=== PATIENT | male | born 1955 | race Caucasian/White ===

== ENCOUNTER 2017-06-23 09:52 | Emergency (ER) | payer OTHER ==
[2017-06-23] MEDS ORDERED: ONDANSETRON 4 MG/2 ML VIAL IVP ONE (10:15)
[2017-06-23] MEDS ORDERED: NS 1,000 ML IV ONE (10:15)
--- NOTE | 2017-06-23 10:18 | EDPHY ---
HPI/HX/ROS/PE/MDM Narrative: CHIEF COMPLAINT: Dyspnea HPI: The patient is a 62 y/o male with hypercholesterolemia visiting from [place] for evaluation of dyspnea over the last week. Last Sunday while in [place] he went on a walk with his and felt unexpectedly short of breath with sensation of a racing heart and mild chest pain. He denies pleuritic pain and instead describes difficulty catching his breath. These symptoms recurred during exercise sessions throughout the week. He has also been sleeping more than normal and yesterday developed nausea, vomiting, and diarrhea. This constellation of symptoms recurred this morning so his urged him to come to the ED for evaluation. He also has a mild headache. He has an unclear cardiac history including something abnormal with his aortic root that was previously erroneously diagnosed as an aneurysm and strong family history of cardiac disease. In 2005 he had an abnormal stress test and a normal angio. He has had multiple subsequent cardiac evaluations, but has difficulty telling me what, if anything was determined from these. He denies history of blood clots or respiratory disease. REVIEW OF SYSTEMS: Aside from elements discussed in the HPI, a comprehensive 10-point review of systems was reviewed and is negative. PMH: Hypercholesterolemia, "something in the aortic root that's not an aneurysm " FAMILY HISTORY: Mother has cardiac issues and "5 children of heart attacks." SOCIAL HISTORY: Visiting from [place] for conference. . PHYSICAL EXAM: General:Patient is alert, in no acute distress. ENT:Eyes are normal to inspection. ENT inspection normal. Neck: Normal inspection. Full range of motion. Respiratory:No respiratory distress. Breath sounds normal bilaterally. Cardiovascular: Regular rate and rhythm. Strong peripheral pulses. Normal cap refill. Abdomen:The abdomen is nontender to palpation. There are no peritoneal signs. Back: Normal to inspection. No tenderness to palpation. Skin: Normal color. No rash. Warm and dry. Extremities: Normal appearance. Full range of motion. Neuro: Oriented x3. Normal motor function. Normal sensory function. ED Course: Plan for standard chest pain evaluation with IV, labs, EKG, chest x-ray. 1L IV NS and 4mg IV Zofran ordered. The 12 lead EKG was interpreted by myself. See hard copy and/or "tracemaster" electronic copy for interpretation. Chest x-ray: nothing acute. MDM: This patient presents with exertional chest pain and dyspnea which is concerning for possible cardiac ischemia. We performed an extensive workup in the ED which is thankfully negative. I had an extensive discussion with the patient and his and indicated that while there is no evidence that the patient has had a heart attack, that he could still be suffering from ischemia and is at risk of developing one. I recommended admission and cardiology consultation but patient refuses. He is sober and competent and appears to understand risks involved in this decision. We discussed strict return precautions. - Data Points Imaging Results: Imaging Impressions Chest X-Ray 06/23/17 10:15 Impression: No acute abnormality. Imaging: I viewed and interpreted images myself Laboratory Results: Laboratory Results 06/23/17 10:25 06/23/17 10:25 06/23/17 06/23/17 06/23/17 10:25 10:25 10:25 WBC 4.32 10^3/uL 10^3/uL (3.80-9.50) RBC 4.69 10^6/uL 10^6/uL (4.40-6.38) Hgb 14.3 g/dL g/dL (13.7-17.5) Hct 42.6 % % (40.0-51.0) MCV 90.8 fL fL (81.5-99.8) MCH 30.5 pg pg (27.9-34.1) MCHC 33.6 g/dL g/dL (32.4-36.7) RDW 13.6 % % (11.5-15.2) Plt Count 177 10^3/uL 10^3/uL (150-400) MPV 11.5 fL fL (8.7-11.7) Neut % (Auto) 60.9 % % (39.3-74.2) Lymph % (Auto) 17.4 % % (15.0-45.0) [place] % (Auto) 15.0 % H % (4.5-13.0) Eos % (Auto) 6.0 % % (0.6-7.6) Baso % (Auto) 0.5 % % (0.3-1.7) Nucleat RBC Rel Count 0.0 % % (0.0-0.2) Absolute Neuts (auto) 2.63 10^3/uL 10^3/uL (1.70-6.50) Absolute Lymphs (auto) 0.75 10^3/uL L 10^3/uL (1.00-3.00) Absolute Monos (auto) 0.65 10^3/uL 10^3/uL (0.30-0.80) Absolute Eos (auto) 0.26 10^3/uL 10^3/uL (0.03-0.40) Absolute Basos (auto) 0.02 10^3/uL 10^3/uL (0.02-0.10) Absolute Nucleated RBC 0.00 10^3/uL 10^3/uL (0-0.01) Immature Gran % 0.2 % % (0.0-1.1) Immature Gran # 0.01 10^3/uL 10^3/uL (0.00-0.10) D-Dimer 0.31 ug/mLFEU ug/mLFEU (0.00-0.50) Sodium 141 mEq/L mEq/L (135-145) Potassium 4.6 mEq/L mEq/L (3.5-5.2) Chloride 103 mEq/L mEq/L (97-110) Carbon Dioxide 25 mEq/l mEq/l (22-31) Anion Gap 13 mEq/L mEq/L (8-16) BUN 18 mg/dL mg/dL (7-23) Creatinine 1.0 mg/dL mg/dL (0.7-1.3) Estimated GFR > 60 Glucose 82 mg/dL mg/dL (70-100) Calcium 8.3 mg/dL L mg/dL (8.5-10.4) Troponin I < 0.012 ng/mL ng/mL (0.000-0.034) NT-Pro-B Natriuret Pep 38 pg/mL pg/mL (0-125) Lipase 58 IU/L IU/L (23-300) Medications Given: Discontinued Medications Acetaminophen (Tylenol) 650 mg PO EDNOW ONE Stop: 06/23/17 11:24 Last Admin: 06/23/17 11:25 Dose: 650 mg Sodium Chloride (Ns) 1,000 mls @ 0 mls/hr IV EDNOW ONE; Wide Open PRN Reason: Protocol Stop: 06/23/17 10:16 Last Admin: 06/23/17 10:44 Dose: 1,000 mls Ondansetron HCl (Zofran) 4 mg IVP EDNOW ONE Stop: 06/23/17 10:16 Last Admin: 06/23/17 10:46 Dose: Not Given General Time Seen by Provider: 06/23/17 10:08 Initial Vital Signs: Initial Vital Signs Temperature (C) 36.7 C 06/23/17 09:55 Heart Rate 83 06/23/17 09:55 Respiratory Rate 18 06/23/17 09:55 Blood Pressure 124/74 H 06/23/17 09:55 O2 Sat (%) 96 06/23/17 09:55 O2 Delivery Mode Room Air Allergies/Adverse Reactions: No Known Allergies Allergy (Unverified 06/23/17 09:55) Home Medications: Medication Instructions Recorded Omeprazole 40 mg PO 06/23/17 Simvastatin [Zocor] 40 mg PO 06/23/17 Departure - Departure Disposition: Home, Routine, Self-Care Clinical Impression: Chest pain, Vomiting Condition: Good Instructions: Chest Pain (ED) Additional Instructions: Follow-up with your primary doctor within 72 hours. Return to the Emergency Department for fever, chest pain, shortness of breath, increasing pain or other worsening of condition. Follow up with a precision aircraft systems assembler for further testing, as soon as possible, within one week. As we discussed, it is impossible to fully rule out heart disease as the cause of your chest pain in the emergency department. We would be happy to reevaluate you and observe you in the hospital at any time. Referrals: NONE *PRIMARY CARE P,. [Primary Care Provider] - As per Instructions Report Scribed for: Bernardo Valdes Report Scribed by: Noy Man Date of Report: 06/23/17 Time of Report: 10:44
--- NOTE | 2017-06-23 10:21 | CPEKG ---
Heart Rate: 70 RR Interval: 857 P-R Interval: 184 QRSD Interval: 88 QT Interval: 384 QTC Interval: 415 P [place]: 58 QRS [place]: -71 T Wave [place]: 45 EKG Severity - ABNORMAL ECG - EKG Impression: SINUS RHYTHM EKG Impression: LEFT ANTERIOR FASCICULAR BLOCK Electronically Signed By: Brady Shine 25-Jun-2017 08:58:34
[2017-06-23 10:36] LABS: PLATELET COUNT 177 10^3/uL (150-400)
[2017-06-23] MEDS ORDERED: ACETAMINOPHEN 325 MG TAB PO ONE (11:23)
[2017-06-23 11:25] VITALS: BP 102/61
== END 2017-06-23 11:45 | disposition home or self-care (01) ==
DX: R07.9 Chest pain, unspecified (principal); R11.10 Vomiting, unspecified; E86.9 Volume depletion, unspecified
CPT/HCPCS: J2405